=== PATIENT | male | born 1950 | race Asian ===

== ENCOUNTER 2018-10-26 06:15 | Emergency (ER) | payer OTHER ==
[~2018-10-26] VITALS: Ht 157.5 cm; Wt 54.9 kg
[2018-10-26 06:22] VITALS: Ht 157.5 cm; Wt 54.9 kg
[2018-10-26 07:08] VITALS: BP 131/87
== END 2018-10-26 07:59 | disposition home or self-care (01) ==
LOC: ED 06:15
DX: S01.81XA Laceration without foreign body of other part of head, initial encounter (principal); S05.31XA Ocular laceration without prolapse or loss of intraocular tissue, right eye, initial encounter; H11.31 Conjunctival hemorrhage, right eye; W06.XXXA Fall from bed, initial encounter; Y93.89 Activity, other specified; Y92.89 Other specified places as the place of occurrence of the external cause; Y99.8 Other external cause status
CPT/HCPCS: 90715; J2001